=== PATIENT | female | born 1985 | race Caucasian/White ===

== ENCOUNTER 2019-03-14 09:30 | Outpatient (CLI) | payer BC ==
[2019-03-14] MEDS ORDERED: MV-M1TAB25 PO (09:50)
== END 2019-03-14 23:59 | disposition home or self-care (01) ==
LOC: STAR 09:30
PROVIDERS: ATTEND Orthopaedic Surgery Foot and Ankle Surgery
DX: Z02.9 Encounter for administrative examinations, unspecified (principal)